=== PATIENT | female | born 1935 | race Caucasian/White ===

== ENCOUNTER 2021-11-11 06:39 | Day surgery (SDC) | payer MEDICARE, BC ==
[2021-11-11] MEDS ORDERED: cefOXitin 2 GM Vial ONE (06:45)
[2021-11-11] MEDS ORDERED: fentaNYL 100 MCG/2 ML SDV ONE (07:10)
[2021-11-11] MEDS ORDERED: Propofol 200 MG/20 ML SDV ONE (07:10)
[2021-11-11] MEDS ORDERED: Dextrose 5%-Lactated Ringers 1,000 ML IV SCH (07:15)
[2021-11-11 11:19] VITALS: BP 117/62; PULSE 72
== END 2021-11-11 11:20 | disposition home or self-care (01) ==
LOC: JP.SDS 06:39
PROVIDERS: ATTEND Surgery
DX: Z12.11 Encounter for screening for malignant neoplasm of colon (principal); K64.9 Unspecified hemorrhoids; J44.9 Chronic obstructive pulmonary disease, unspecified; K21.9 Gastro-esophageal reflux disease without esophagitis; Z85.038 Personal history of other malignant neoplasm of large intestine; Z90.49 Acquired absence of other specified parts of digestive tract
CPT/HCPCS: J0694; J2704; J3010; J7121